=== PATIENT | male | born 1975 | race African-American/Black ===

== ENCOUNTER 2021-06-05 16:46 | Inpatient (IN) | payer MEDICAID, OTHER ==
[~2021-06-05] VITALS: Ht 185.4 cm; Wt 127.1 kg
[~2021-06-05 16:46] MED LIST: ATOR80TA PO; CEPH500C2 PO; CLOP-31 PO; COR12 PO; DIPH25TA23 PO; FLUT15.844 BOTHNSTRLS; FLUT9.9S BOTHNSTRLS; FURO-151 PO; GABA-532 PO; LISI20TA31 PO; MIRT45TA83 MT; ONDA4TAB5 PO; QUET400T PO; TIMO5DRO32 EACHEYE; TRAZ-252 PO; XALAO EACHEYE
[2021-06-05] MEDS ORDERED: ASPIRIN 325MG EC TABLET PO ONE (17:45)
[2021-06-05 18:10] LABS: BASOPHILS % 0.6 % (0.0-2.0); EOSINOPHILS % 1.3 % (0.0-5.0); HEMOGLOBIN. 12.1 g/dL (14.0-18.0); LYMPHOCYTES % 39.6 % (20.0-50.0); MEAN CORPUSCULAR HEMOGLOBIN 26.3 pg (28.0-32.0); MEAN CORPUSCULAR VOLUME 82.6 fL (80.0-94.0); MEAN PLATELET VOLUME 7.7 fl (7.4-10.4); MONOCYTES % 13.7 % (2.0-8.0); NEUTROPHILS % 44.8 % (40.0-76.0); PLATELET 107 x1000/uL (130-400); RED BLOOD CELL COUNT 4.61 mill/uL (4.7-6.1); RED CELL DISTRIBUTION WIDTH 15.7 % (11.6-14.6)
[2021-06-05 18:13] LABS: CHLORIDE 110 mEq/L (98-107)
[2021-06-05 18:17] LABS: ETHANOL BLOOD < 10 mg/dL
[2021-06-05] MEDS ORDERED: ASPIRIN 300MG SUPP PR ONE (18:30)
[2021-06-05] MEDS ORDERED: DIPHENHYDRAMINE 50MG/ML VIAL IV ONE (19:30)
[2021-06-05] MEDS ORDERED: KETOROLAC 15MG/ML VIAL IV ONE (19:30)
[2021-06-05] MEDS ORDERED: METOCLOPRAMIDE HCL 10MG/2ML VIAL IV ONE (19:30)
[2021-06-05] MEDS ORDERED: KETOROLAC 30MG/ML VIAL IV NR (20:00)
[2021-06-05 20:28] LABS: CLARITY URINE CLOUDY (CLEAR); COLOR URINE YELLOW (YELLOW); KETONES URINE NEGATIVE (NEGATIVE); LEUKOCYTE ESTERASE URINE NEGATIVE (NEGATIVE); NITRITE URINE NEGATIVE (NEGATIVE); OCCULT BLOOD URINE NEGATIVE (NEGATIVE); PH URINE 8.5 (4.5-8.0); PROTEIN URINE NEGATIVE (NEGATIVE); SPECIFIC GRAVITY URINE 1.038 (1.005-1.030); UROBILINOGEN URINE 0.2 E.U./dL (0.2-1.0)
[2021-06-05 20:38] LABS: *AMPHETAMINES SCREEN URINE NEGATIVE (NEGATIVE); *BARBITURATES SCREEN URINE NEGATIVE (NEGATIVE); *BENZODIAZEPINES SCREEN URINE NEGATIVE (NEGATIVE); *COCAINE SCREEN URINE NEGATIVE (NEGATIVE); METHADONE URINE SCREEN NEGATIVE (NEGATIVE); OPIATES URINE SCREEN PRESUMTIVE POSITIVE (NEGATIVE)
[2021-06-05 20:39] LABS: CANNABINOID URINE SCREEN NEGATIVE (NEGATIVE); PHENCYCLIDINE URINE SCREEN NEGATIVE (NEGATIVE)
[2021-06-05] MEDS ORDERED: IOHEXOL-350 100 ML BOTTLE ONE (23:26)
[2021-06-06] MEDS ORDERED: NALOXONE HCL 0.4MG/ML VIAL IV PRN (01:15)
[2021-06-06 07:44] VITALS: BP 134/97
[2021-06-06 08:00] VITALS: BP 152/97
[2021-06-06] MEDS: CLOPIDOGREL 75MG TABLET PO SCH (09:29)
[2021-06-06] MEDS: METOPROLOL TARTRATE 50MG TABLET PO SCH ×2 (09:29→20:23)
[2021-06-06] MEDS: FUROSEMIDE 40MG TABLET PO SCH (09:30)
[2021-06-06] MEDS: CARVEDILOL 12.5MG TABLET PO SCH ×2 (09:30→20:24)
[2021-06-06] MEDS: ENOXAPARIN 40MG/0.4ML SYR SUBCUT SCH (09:30)
[2021-06-06] MEDS: BENZTROPINE MESYLATE 1MG TABLET PO PRN (09:37)
[2021-06-06] MEDS: FLUTICASONE PROPIONATE 50MCG/SPRAY BOTTLE BOTHNSTRLS SCH (09:37)
[2021-06-06] MEDS: ASPIRIN 81MG TABLET PO SCH (09:38)
[2021-06-06] MEDS: HYDROCODONE/ACETAMINOPHEN 5/325MG TABLET PO PRN ×2 (10:15→18:06)
[2021-06-06 12:00] VITALS: BP 130/82
[2021-06-06 12:59] LABS: BASOPHILS % 0.4 % (0.0-2.0); EOSINOPHILS % 2.6 % (0.0-5.0); HEMATOCRIT. 33.6 % (42.0-52.0); HEMOGLOBIN. 10.8 g/dL (14.0-18.0); LYMPHOCYTES % 36.5 % (20.0-50.0); MEAN CORPUSCULAR HEMOGLOBIN 26.2 pg (28.0-32.0); MEAN CORPUSCULAR VOLUME 81.4 fL (80.0-94.0); MONOCYTES % 13.6 % (2.0-8.0); NEUTROPHILS % 46.9 % (40.0-76.0); PLATELET 107 x1000/uL (130-400); RED BLOOD CELL COUNT 4.13 mill/uL (4.7-6.1); RED CELL DISTRIBUTION WIDTH 15.7 % (11.6-14.6)
[2021-06-06 13:09] LABS: CHLORIDE 111 mEq/L (98-107)
[2021-06-06 13:18] LABS: LDL CHOLESTEROL 65 mg/dL (5-100)
[2021-06-06 13:21] LABS: HDL CHOLESTEROL 66 mg/dL (40-59)
[2021-06-06] MEDS: TIMOLOL MALEATE 0.25% OPHTH DROPS 5ML EACHEYE SCH ×2 (13:26→20:21)
[2021-06-06] MEDS: IPRATROPIUM/ALBUTEROL 0.5-3(2.5)MG/3ML NEB HHN PRN (15:22)
[2021-06-06 15:35] LABS: HEPATITIS B SURFACE ANTIGEN REACTIVE PEND CONFIR
[2021-06-06 16:00] VITALS: BP 131/87
[2021-06-06 20:00] VITALS: BP 129/85
[2021-06-06] MEDS: ATORVASTATIN CALCIUM 40MG TABLET PO SCH (20:22)
[2021-06-06] MEDS: MIRTAZAPINE 15MG TABLET PO SCH (20:22)
[2021-06-06] MEDS: LATANOPROST 0.005% OPHTH DROPS 2.5ML BOTHEYE SCH (20:22)
[2021-06-06] MEDS ORDERED: FERR325T6 PO (22:17)
[2021-06-06] MEDS ORDERED: LEVO500T89 PO (22:17)
[2021-06-06] MEDS: HYDROCODONE/ACETAMINOPHEN 10/325MG TABLET PO PRN (23:26)
[2021-06-06] MEDS: TRAZODONE HCL 50MG TABLET PO PRN (23:50)
[2021-06-06] MEDS: ONDANSETRON HCL 4MG/2ML INJ IV PRN (23:50)
[2021-06-07] VITALS: BP 148/94
[2021-06-07] MEDS: IPRATROPIUM/ALBUTEROL 0.5-3(2.5)MG/3ML NEB HHN PRN ×2 (00:39→14:54)
[2021-06-07] MEDS ORDERED: MAGNESIUM/ALUMINUM HYDROXIDE/SIMETHICONE 30ML UDC PO PRN (00:45)
[2021-06-07] MEDS ORDERED: ZOLPIDEM TARTRATE 5MG TABLET PO PRN (00:45)
[2021-06-07 04:30] VITALS: BP 121/69
[2021-06-07] MEDS: GABAPENTIN 300MG CAPSULE PO SCH ×3 (06:18→22:43)
[2021-06-07 08:00] VITALS: BP 126/84
[2021-06-07] MEDS: ASPIRIN 81MG TABLET PO SCH (08:37)
[2021-06-07] MEDS: FUROSEMIDE 40MG TABLET PO SCH (08:37)
[2021-06-07] MEDS: CLOPIDOGREL 75MG TABLET PO SCH (08:38)
[2021-06-07] MEDS: CARVEDILOL 12.5MG TABLET PO SCH ×2 (08:40→21:00)
[2021-06-07] MEDS: ENOXAPARIN 40MG/0.4ML SYR SUBCUT SCH (08:40)
[2021-06-07] MEDS: HYDROCODONE/ACETAMINOPHEN 10/325MG TABLET PO PRN ×3 (08:41→23:19)
[2021-06-07] MEDS: METOPROLOL TARTRATE 50MG TABLET PO SCH (08:41)
[2021-06-07] MEDS: FLUTICASONE PROPIONATE 50MCG/SPRAY BOTTLE BOTHNSTRLS SCH (08:42)
[2021-06-07] MEDS: TIMOLOL MALEATE 0.25% OPHTH DROPS 5ML EACHEYE SCH ×2 (08:42→22:43)
[2021-06-07] MEDS: TRAMADOL 50MG TABLET PO PRN ×2 (11:23→20:08)
[2021-06-07 12:00] VITALS: BP 128/86
[2021-06-07 16:00] VITALS: BP 120/82
[2021-06-07] MEDS ORDERED: FURO40TA5 PO (17:18)
[2021-06-07] MEDS ORDERED: LIP40 PO (17:18)
[2021-06-07] MEDS ORDERED: XALAO BOTHEYE (17:18)
[2021-06-07] MEDS ORDERED: TIMO15DR11 EACHEYE (17:18)
[2021-06-07] MEDS ORDERED: CLOP-31 PO (17:18)
[2021-06-07] MEDS ORDERED: COR12 PO (17:18)
[2021-06-07] MEDS ORDERED: GABA-532 PO (17:18)
[2021-06-07 20:00] VITALS: BP 133/89
[2021-06-07] MEDS: ONDANSETRON HCL 4MG/2ML INJ IV PRN (20:02)
[2021-06-07] MEDS: ATORVASTATIN CALCIUM 40MG TABLET PO SCH (22:43)
[2021-06-07] MEDS: MIRTAZAPINE 15MG TABLET PO SCH (22:43)
[2021-06-07] MEDS: LATANOPROST 0.005% OPHTH DROPS 2.5ML BOTHEYE SCH (22:43)
[2021-06-07] MEDS: BENZTROPINE MESYLATE 1MG TABLET PO PRN (22:44)
[2021-06-07] MEDS: DIPHENHYDRAMINE 50MG CAPSULE PO PRN (22:44)
[2021-06-07] MEDS: TRAZODONE HCL 50MG TABLET PO PRN (22:45)
[2021-06-08] VITALS: BP 151/100
[2021-06-08 04:00] VITALS: BP 122/73
[2021-06-08] MEDS: TRAMADOL 50MG TABLET PO PRN (04:44)
[2021-06-08] MEDS: GABAPENTIN 300MG CAPSULE PO SCH (05:39)
[2021-06-08] MEDS: DIPHENHYDRAMINE 50MG CAPSULE PO PRN (06:19)
[2021-06-08] MEDS: ONDANSETRON HCL 4MG/2ML INJ IV PRN (06:24)
[2021-06-08] MEDS: HYDROCODONE/ACETAMINOPHEN 10/325MG TABLET PO PRN (06:25)
[2021-06-08 08:00] VITALS: BP 134/95
[2021-06-08 08:06] VITALS: BP 134/95
[2021-06-08] MEDS: FLUTICASONE PROPIONATE 50MCG/SPRAY BOTTLE BOTHNSTRLS SCH (08:36)
[2021-06-08] MEDS: TIMOLOL MALEATE 0.25% OPHTH DROPS 5ML EACHEYE SCH (08:36)
[2021-06-08] MEDS: ASPIRIN 81MG TABLET PO SCH (08:37)
[2021-06-08] MEDS: CLOPIDOGREL 75MG TABLET PO SCH (08:37)
[2021-06-08] MEDS: CARVEDILOL 12.5MG TABLET PO SCH (08:38)
[2021-06-08] MEDS: FUROSEMIDE 40MG TABLET PO SCH (08:38)
[2021-06-08] MEDS ORDERED: ENOXAPARIN 30MG/0.3ML SYR SUBCUT SCH (09:00)
[2021-06-08] MEDS ORDERED: ONDANSETRON 4MG/5ML UDC PO NR (09:00)
[2021-06-11 13:07] LABS: HBSAG CONFIRMATION Positive (.); HBSAG SCREEN Confirm. indicated (Negative)
== END 2021-06-08 14:00 | disposition home or self-care (01) | DRG 47 ==
LOC: ER 16:46 → EDBEDREQ 17:56 → EDBEDREQSVC 17:56 → EDBEDREQ 19:38 → EDBEDREQTM 19:38 → ENRESERV 21:36 → 8WST 23:33
PROVIDERS: ADMIT Internal Medicine; ATTEND Internal Medicine
DX: G45.9 Transient cerebral ischemic attack, unspecified (principal); I50.33 Acute on chronic diastolic (congestive) heart failure; E44.0 Moderate protein-calorie malnutrition; E87.8 Other disorders of electrolyte and fluid balance, not elsewhere classified; Z93.0 Tracheostomy status; I11.0 Hypertensive heart disease with heart failure; D64.9 Anemia, unspecified; E66.9 Obesity, unspecified; F32.A Depression, unspecified; R47.1 Dysarthria and anarthria; I69.954 Hemiplegia and hemiparesis following unspecified cerebrovascular disease affecting left non-dominant side; Z91.013 Allergy to seafood; Z91.018 Allergy to other foods; Z88.8 Allergy status to other drugs, medicaments and biological substances; Z91.040 Latex allergy status; Z79.899 Other long term (current) drug therapy; Z68.37 Body mass index [BMI] 37.0-37.9, adult
CPT/HCPCS: 36415; 70496; 70498; 70551; 71045; 80048; 80053; 80061; 80305; 80320; 81003; 82962; 83036; 84484; 85025; 86592; 86705; 86709; 86803; 87340; 93005; 97166; 99291; C1893; J1200; J1650; J1885; J2405; J2765; Q0163; Q9967; G0480